=== PATIENT | male | born 1970 | race Hispanic/Latino ===

== ENCOUNTER → 2024-02-02 08:52 | Outpatient (REF) | payer OTHER, SELFPAY ==
[2024-02-02 10:23] LABS: Hematocrit 43.5 % (39.0-52.0); Hemoglobin 14.8 g/dL (13.0-18.0); Mean Corpuscular Hgb 29.4 pg (27.0-31.0); Mean Corpuscular Volume 86.5 fL (80.0-94.0); Mean Platelet Volume 9.4 fL (7.4-10.4); Platelet Count 376 10^3/uL (130-400); Red Blood Cell Count 5.03 10^6/uL (4.70-6.10); Red Cell Dist. Width 12.5 % (11.5-14.5); White Blood Cell Count 6.7 10^3/uL (4.8-10.8)
[2024-02-02 11:17] LABS: TSH Reflex To Free T4 4.71 uIU/ml (0.47-4.68)
[2024-02-02 11:28] LABS: ALT (SGPT) 49 U/L (0-50); AST (SGOT) 34 U/L (17-59); Albumin 4.4 g/dl (3.5-5.0); Alkaline Phosphatase 70 U/L (38-126); Blood Urea Nitrogen 16 mg/dl (9-20); Calcium 9.8 mg/dl (8.4-10.2); Carbon Dioxide 27 mmol/L (22-30); Chloride 103 mmol/L (98-107); Glucose 98 mg/dl (70-99); Potassium 4.6 mmol/L (3.5-5.1); Sodium 138 mmol/L (135-145); Total Bilirubin 0.3 mg/dl (0.2-1.3); Total Protein 7.3 g/dl (6.3-8.2); eGFR > 60.00
[2024-02-02 11:47] LABS: Free T4 0.87 ng/dl (0.78-2.19)
== END ==
LOC: CLINIC 08:52
PROVIDERS: ATTENDING PHYSICIAN Nurse Practitioner Adult Health
DX: Z00.00 Encounter for general adult medical examination without abnormal findings (principal)
CPT/HCPCS: 36415; 80053; 84439; 84443; 85027

== ENCOUNTER → 2024-06-25 09:40 | Outpatient (REF) | payer OTHER, SELFPAY ==
[2024-06-25 11:59] LABS: HDL Cholesterol 42 mg/dl; LDL Cholesterol, Calculated 138 mg/dl; Total Cholesterol 222 mg/dl (50-199); Triglyceride 214 mg/dl (10-149); Very Low Density Lipoprotein 42 mg/dl (0-30)
[2024-06-25 12:47] LABS: TSH Reflex To Free T4 4.15 uIU/ml (0.47-4.68)
== END ==
LOC: CLINIC 09:40
PROVIDERS: ATTENDING PHYSICIAN Nurse Practitioner Adult Health
DX: Z13.220 Encounter for screening for lipoid disorders (principal); E03.8 Other specified hypothyroidism
CPT/HCPCS: 36415; 80061; 84443

== ENCOUNTER → 2025-04-15 10:13 | Outpatient (REF) | payer OTHER, SELFPAY ==
[2025-04-15 11:18] LABS: Hematocrit 43.9 % (39.0-52.0); Mean Corp Hgb Conc. 34.2 g/dL (33.0-37.0); Mean Corpuscular Hgb 29.7 pg (27.0-31.0); Mean Corpuscular Volume 86.9 fL (80.0-94.0); Mean Platelet Volume 9.6 fL (7.4-10.4); Platelet Count 273 10^3/uL (130-400); Red Blood Cell Count 5.05 10^6/uL (4.70-6.10)
[2025-04-15 11:51] LABS: ALT (SGPT) 31 U/L (0-50); AST (SGOT) 28 U/L (17-59); Albumin 4.7 g/dl (3.5-5.0); Alkaline Phosphatase 54 U/L (38-126); Blood Urea Nitrogen 19 mg/dl (9-20); Calcium 9.5 mg/dl (8.4-10.2); Carbon Dioxide 30 mmol/L (22-30); Chloride 109 mmol/L (98-107); Glucose 100 mg/dl (70-99); HDL Cholesterol 45 mg/dl; LDL Cholesterol, Calculated 143 mg/dl; Potassium 4.6 mmol/L (3.5-5.1); Sodium 142 mmol/L (135-145); Total Bilirubin 0.6 mg/dl (0.2-1.3); Total Cholesterol 206 mg/dl (50-199); Total Protein 7.3 g/dl (6.3-8.2); Triglyceride 93 mg/dl (10-149); Very Low Density Lipoprotein 18 mg/dl (0-30); eGFR > 60.00
[2025-04-15 12:16] LABS: PSA, Total - Screen 0.72 ng/ml (0.0-4.0); TSH Reflex To Free T4 2.66 uIU/ml (0.47-4.68)
[2025-04-15 13:24] LABS: Glycohemoglobin (HgbA1c) 5.7 % (4.0-5.6)
== END ==
LOC: REG 10:13
PROVIDERS: ATTENDING PHYSICIAN Nurse Practitioner Adult Health
DX: Z00.00 Encounter for general adult medical examination without abnormal findings (principal); Z12.11 Encounter for screening for malignant neoplasm of colon; Z12.5 Encounter for screening for malignant neoplasm of prostate
CPT/HCPCS: 36415; 80053; 80061; 83036; 84443; 85027; G0103

== ENCOUNTER → 2025-04-16 16:58 | Outpatient (REF) | payer OTHER, SELFPAY | LOC: CLINIC 16:58 | PROVIDERS: ATTENDING PHYSICIAN Nurse Practitioner Adult Health | DX: Z12.11 Encounter for screening for malignant neoplasm of colon (principal); Z12.5 Encounter for screening for malignant neoplasm of prostate | CPT/HCPCS: 83520 ==